=== PATIENT | female | born 1950 | race African-American/Black ===

== ENCOUNTER 2020-03-10 04:51 | Inpatient (IN) | payer OTHER ==
[~2020-03-10] VITALS: Ht 167.6 cm; Wt 85.3 kg
[2020-03-10] MEDS ORDERED: SODIUM CHLORIDE 0.9% 1,000 ML IV ONE ×2 (05:37→09:10)
[2020-03-10] MEDS ORDERED: ONDANSETRON HCL 4MG/2ML INJ IV STA (05:37)
[2020-03-10 06:13] LABS: HEMATOCRIT. 41.1 % (36.0-48.0); HEMOGLOBIN. 13.5 g/dL (12.0-16.0); MEAN CORPUSCULAR HEMOGLOBIN 26.4 pg (28.0-32.0); MEAN CORPUSCULAR VOLUME 80.1 fL (81.0-99.0); RED BLOOD CELL COUNT 5.12 mill/uL (4.2-5.4); RED CELL DISTRIBUTION WIDTH 16.7 % (11.6-14.6)
[2020-03-10 06:14] LABS: CHLORIDE 100 mEq/L (98-107)
[2020-03-10 07:43] LABS: PLATELET 361 x1000/uL (130-400)
[2020-03-10 07:47] LABS: PLATELET ESTIMATE NORMAL
[2020-03-10 08:34] LABS: BG BASE EXCESS -6.8 mmol/L (-2.0-2.0); BG CARBOXYHEMOGLOBIN 0.3 % (0.5-1.5); BG DEOXYHEMOGLOBIN 5.2 % (0.0-5.0); BG FRACTION INSPIRED OXYGEN 21; BG HCO3 ACT 17.3 mmol/L (22.0-26.0); BG OXYGEN SATURATION 94.8 % (92.0-98.5); BG OXYHEMOGLOBIN 94.5 % (94.0-97.0); BG PCO2 30.8 mmHg (35.0-45.0); BG PH 7.367 (7.350-7.450); BG PO2 77.9 mmHg (75.0-100.0); BG SAMPLE SITE RIGHT RADIAL; BG TOTAL HEMOGLOBIN 13.2 g/dL (12.0-18.0); BG VENT MODE ROOM AIR
[2020-03-10] MEDS ORDERED: PIPERACILLIN/TAZ 3.375G PREMIX 50 ML IV ONE (09:15)
[2020-03-10] MEDS ORDERED: VANCOMYCIN 1 G PREMIX 200 ML IV ONE (09:15)
[2020-03-10 09:56] LABS: D-DIMER 3.84 mg/L FEU (<0.50)
[2020-03-10] MEDS ORDERED: ONDANSETRON HCL 4MG/2ML INJ IV PRN (10:45)
[2020-03-10] MEDS ORDERED: LORAZEPAM 0.5MG TABLET PO PRN (10:45)
[2020-03-10] MEDS ORDERED: NA PHOS,M-B/NA PHOS,DI-BA ENEMA 118ML PR PRN (10:45)
[2020-03-10] MEDS ORDERED: DIPHENHYDRAMINE 50MG/ML VIAL IV PRN (10:45)
[2020-03-10] MEDS ORDERED: IPRATROPIUM/ALBUTEROL 0.5-3(2.5)MG/3ML NEB NEB PRN (10:45)
[2020-03-10] MEDS ORDERED: DOCUSATE SODIUM 100MG CAPSULE PO PRN (10:45)
[2020-03-10] MEDS ORDERED: DEXTROSE 50% WATER 50ML SYRINGE IV PRN (10:45)
[2020-03-10] MEDS ORDERED: MAGNESIUM/ALUMINUM HYDROXIDE/SIMETHICONE 30ML UDC PO PRN (10:45)
[2020-03-10] MEDS ORDERED: ACETAMINOPHEN 650MG SUPP PR PRN (10:45)
[2020-03-10] MEDS ORDERED: GUAIFENESIN 200MG/10ML SUGAR FREE UDC PO PRN (10:45)
[2020-03-10 11:40] VITALS: BP 193/78
[2020-03-10 12:00] VITALS: BP 169/78
[2020-03-10] MEDS ORDERED: ENOXAPARIN 40MG/0.4ML SYR SUBCUT SCH (12:00)
[2020-03-10] MEDS ORDERED: CYAN500T66 MT (12:44)
[2020-03-10] MEDS ORDERED: TRAM100C3 PO (12:44)
[2020-03-10] MEDS ORDERED: CLON0.1T PO (12:44)
[2020-03-10] MEDS ORDERED: CARV12.545 MT (12:44)
[2020-03-10] MEDS ORDERED: TRAM50TA3 MT (12:44)
[2020-03-10] MEDS: SODIUM CHLORIDE 0.9% 1,000 ML IV SCH ×2 (12:56→23:20)
[2020-03-10] MEDS: BLOOD SUGAR DIAGNOSTIC STRIP TEST SCH ×3 (13:07→21:47)
[2020-03-10] MEDS: CLONIDINE 0.1MG TABLET PO PRN ×2 (13:08→23:40)
[2020-03-10] MEDS: INSULIN LISPRO 100 UNITS/ML SUBCUT SCH ×3 (13:08→21:00)
[2020-03-10] MEDS: FAMOTIDINE 20MG/2ML VIAL IV SCH (13:10)
[2020-03-10] MEDS ORDERED: FAMO40TA7 MT (13:28)
[2020-03-10] MEDS ORDERED: METF-414 MT (13:28)
[2020-03-10] MEDS ORDERED: NIFE20CA PO (13:28)
[2020-03-10] MEDS ORDERED: ASPI-1497 PO (13:31)
[2020-03-10] MEDS ORDERED: ATOR-2 MT (13:31)
[2020-03-10] MEDS ORDERED: HYDR100T26 PO (13:31)
[2020-03-10] MEDS ORDERED: GABA-290 PO (13:31)
[2020-03-10] MEDS ORDERED: VANCOMYCIN 500 MG PREMIX 100 ML IV SCH (14:00)
[2020-03-10] MEDS: PIPERACILLIN/TAZOBACTAM 2.25 G in DEXTROSE 5% WATER 50 ML IV SCH ×2 (14:22→21:47)
[2020-03-10] MEDS ORDERED: PIPERACILLIN/TAZOBACTAM 2.25 G in DEXTROSE 5% WATER 50 ML IV SCH (15:00)
[2020-03-10] MEDS: AMLODIPINE 5MG TABLET PO SCH (17:39)
[2020-03-10 20:00] VITALS: BP 167/94
[2020-03-10] MEDS ORDERED: ENOXAPARIN 80MG/0.8ML SYR SUBCUT SCH (20:00)
[2020-03-10 20:46] LABS: CREATINE KINASE MB FRACTION 3.7 ng/mL (0.5-3.6)
[2020-03-10] MEDS: HYDRALAZINE 20MG/ML VIAL IV PRN (21:57)
[2020-03-10 23:54] LABS: CREATINE KINASE MB FRACTION 4.2 ng/mL (0.5-3.6)
[2020-03-11 00:51] VITALS: BP 183/94
[2020-03-11] MEDS: PIPERACILLIN/TAZOBACTAM 2.25 G in DEXTROSE 5% WATER 50 ML IV SCH ×4 (03:02→20:55)
[2020-03-11 04:00] VITALS: BP 174/94
[2020-03-11 06:11] LABS: CHLORIDE 104 mEq/L (98-107)
[2020-03-11 06:22] LABS: LDL CHOLESTEROL 28 mg/dL (5-100)
[2020-03-11 06:23] LABS: HDL CHOLESTEROL 42 mg/dL (40-59)
[2020-03-11 06:45] LABS: HEMATOCRIT. 39.5 % (36.0-48.0); MEAN CORPUSCULAR HEMOGLOBIN 26.3 pg (28.0-32.0); MEAN CORPUSCULAR VOLUME 80.1 fL (81.0-99.0); MEAN PLATELET VOLUME 8.9 fl (7.4-10.4); PLATELET 340 x1000/uL (130-400); RED BLOOD CELL COUNT 4.93 mill/uL (4.2-5.4); RED CELL DISTRIBUTION WIDTH 16.5 % (11.6-14.6)
[2020-03-11] MEDS: BLOOD SUGAR DIAGNOSTIC STRIP TEST SCH ×4 (06:56→21:01)
[2020-03-11] MEDS: INSULIN LISPRO 100 UNITS/ML SUBCUT SCH ×4 (07:01→21:00)
[2020-03-11 08:00] VITALS: BP 152/89
[2020-03-11] MEDS: FAMOTIDINE 20MG/2ML VIAL IV SCH (08:55)
[2020-03-11] MEDS: AMLODIPINE 5MG TABLET PO SCH (09:45)
[2020-03-11] MEDS ORDERED: POTASSIUM CHLORIDE 20MEQ TABLET SR PO NR (10:45)
[2020-03-11] MEDS: CLONIDINE 0.1MG TABLET PO PRN ×2 (10:57→23:50)
[2020-03-11 12:00] VITALS: BP 179/90
[2020-03-11] MEDS ORDERED: VANCOMYCIN 750 MG PREMIX 150 ML IV NR (12:00)
[2020-03-11] MEDS: HYDRALAZINE 20MG/ML VIAL IV PRN (12:13)
[2020-03-11] MEDS: SODIUM CHLORIDE 0.9% 1,000 ML IV SCH (13:42)
[2020-03-11] MEDS ORDERED: ENOXAPARIN 30MG/0.3ML SYR SUBCUT SCH (14:00)
[2020-03-11] MEDS: HYDRALAZINE HCL 50MG TABLET PO SCH ×2 (14:00→21:02)
[2020-03-11 16:00] VITALS: BP 157/82
[2020-03-11 16:22] LABS: BG BASE EXCESS -5.4 mmol/L (-2.0-2.0); BG CARBOXYHEMOGLOBIN 0.1 % (0.5-1.5); BG DEOXYHEMOGLOBIN 5.3 % (0.0-5.0); BG FRACTION INSPIRED OXYGEN 21; BG HCO3 ACT 18.1 mmol/L (22.0-26.0); BG METHEMOGLOBIN 0.3 % (0.0-1.5); BG OXYGEN SATURATION 94.7 % (92.0-98.5); BG OXYHEMOGLOBIN 94.3 % (94.0-97.0); BG PCO2 29.6 mmHg (35.0-45.0); BG PH 7.404 (7.350-7.450); BG PO2 77.6 mmHg (75.0-100.0); BG SAMPLE SITE RIGHT RADIAL; BG TOTAL HEMOGLOBIN 12.8 g/dL (12.0-18.0); BG VENT MODE ROOM AIR
[2020-03-11 17:57] LABS: CLARITY URINE CLOUDY (CLEAR); COLOR URINE YELLOW (YELLOW); KETONES URINE NEGATIVE (NEGATIVE); LEUKOCYTE ESTERASE URINE TRACE (NEGATIVE); NITRITE URINE NEGATIVE (NEGATIVE); OCCULT BLOOD URINE 2+ (NEGATIVE); PROTEIN URINE 1+ (NEGATIVE); SPECIFIC GRAVITY URINE 1.027 (1.005-1.030); UROBILINOGEN URINE 0.2 E.U./dL (0.2-1.0)
[2020-03-11 20:00] VITALS: BP 167/81
[2020-03-11] MEDS: ACETAMINOPHEN 325MG TABLET PO PRN (20:55)
[2020-03-12 01:02] VITALS: BP 169/82
[2020-03-12] MEDS: SODIUM CHLORIDE 0.9% 1,000 ML IV SCH ×2 (02:45→16:24)
[2020-03-12] MEDS: PIPERACILLIN/TAZOBACTAM 2.25 G in DEXTROSE 5% WATER 50 ML IV SCH ×4 (02:54→21:06)
[2020-03-12] MEDS: ACETAMINOPHEN 325MG TABLET PO PRN (03:15)
[2020-03-12 04:00] VITALS: BP 164/88
[2020-03-12] MEDS: HYDRALAZINE HCL 50MG TABLET PO SCH ×3 (05:57→21:06)
[2020-03-12] MEDS: BLOOD SUGAR DIAGNOSTIC STRIP TEST SCH ×4 (06:16→21:05)
[2020-03-12] MEDS: INSULIN LISPRO 100 UNITS/ML SUBCUT SCH ×4 (06:16→21:00)
[2020-03-12] MEDS: HYDROCODONE/ACETAMINOPHEN 5/325MG TABLET PO PRN ×2 (06:51→21:07)
[2020-03-12 07:49] LABS: HEMATOCRIT. 34.5 % (36.0-48.0); HEMOGLOBIN. 11.5 g/dL (12.0-16.0); MEAN CORPUSCULAR HEMOGLOBIN 26.6 pg (28.0-32.0); MEAN CORPUSCULAR VOLUME 80.2 fL (81.0-99.0); MEAN PLATELET VOLUME 8.9 fl (7.4-10.4); PLATELET 343 x1000/uL (130-400); RED CELL DISTRIBUTION WIDTH 16.3 % (11.6-14.6)
[2020-03-12 08:00] VITALS: BP 191/85
[2020-03-12 08:02] LABS: PHOSPHORUS 2.8 mg/dL (2.5-4.9)
[2020-03-12] MEDS: FAMOTIDINE 20MG/2ML VIAL IV SCH (09:50)
[2020-03-12] MEDS: AMLODIPINE 5MG TABLET PO SCH (09:50)
[2020-03-12] MEDS ORDERED: POTASSIUM CHLORIDE INJ 40 MEQ in DEXT 5% WATER 250 ML IV NR (12:00)
[2020-03-12 12:05] LABS: PLATELET ESTIMATE NORMAL
[2020-03-12] MEDS ORDERED: HYDRALAZINE 20MG/ML VIAL IV NR (12:45)
[2020-03-12] MEDS ORDERED: FLUCONAZOLE 200 MG/100ML BAG 100 MG in CONTAINER,EMPTY 0 BAG IV SCH (14:00)
[2020-03-12] MEDS: ASPIRIN 81MG TABLET PO SCH (14:46)
[2020-03-12] MEDS ORDERED: FLUCONAZOLE 100MG/50ML in BAG IV SCH (16:00)
[2020-03-12 18:28] LABS: PLATELET ESTIMATE NORMAL
[2020-03-12 20:00] VITALS: BP 208/67
[2020-03-12] MEDS: CLONIDINE 0.1MG TABLET PO PRN (21:06)
[2020-03-13] VITALS: BP 138/75
[2020-03-13] MEDS: PIPERACILLIN/TAZOBACTAM 2.25 G in DEXTROSE 5% WATER 50 ML IV SCH ×3 (02:47→15:39)
[2020-03-13 04:00] VITALS: BP 126/75
[2020-03-13] MEDS: SODIUM CHLORIDE 0.9% 1,000 ML IV SCH (05:25)
[2020-03-13] MEDS: HYDRALAZINE HCL 50MG TABLET PO SCH (05:54)
[2020-03-13] MEDS: BLOOD SUGAR DIAGNOSTIC STRIP TEST SCH ×2 (05:55→12:34)
[2020-03-13] MEDS: INSULIN LISPRO 100 UNITS/ML SUBCUT SCH ×2 (06:23→12:15)
[2020-03-13 07:41] LABS: HEMATOCRIT. 33.3 % (36.0-48.0); HEMOGLOBIN. 10.9 g/dL (12.0-16.0); MEAN CORPUSCULAR VOLUME 79.5 fL (81.0-99.0); MEAN PLATELET VOLUME 8.7 fl (7.4-10.4); PLATELET 355 x1000/uL (130-400); RED BLOOD CELL COUNT 4.19 mill/uL (4.2-5.4); RED CELL DISTRIBUTION WIDTH 16.3 % (11.6-14.6)
[2020-03-13] MEDS: HYDROCODONE/ACETAMINOPHEN 5/325MG TABLET PO PRN ×2 (08:10→14:00)
[2020-03-13] MEDS: AMLODIPINE 5MG TABLET PO SCH (08:10)
[2020-03-13] MEDS: ASPIRIN 81MG TABLET PO SCH (08:10)
[2020-03-13] MEDS: FAMOTIDINE 20MG/2ML VIAL IV SCH (08:10)
[2020-03-13] MEDS: CLONIDINE 0.1MG TABLET PO PRN (11:17)
[2020-03-13 12:00] VITALS: BP 184/78
[2020-03-13] MEDS ORDERED: HYDRALAZINE HCL 25MG TABLET PO SCH (14:00)
[2020-03-13] MEDS ORDERED: FAMO-135 PO (14:20)
[2020-03-13] MEDS ORDERED: LEVO500T2 PO (14:20)
[2020-03-13] MEDS ORDERED: FLUC100T42 MT (14:20)
[2020-03-13] MEDS ORDERED: HYDR100T26 MT (14:20)
[2020-03-13] MEDS: HYDRALAZINE 20MG/ML VIAL IV PRN (15:36)
[2020-03-13 16:11] VITALS: BP 155/70
[2020-03-13 23:17] LABS: PLATELET ESTIMATE NORMAL
== END 2020-03-13 15:40 | disposition home health service (06) | DRG 682 ==
LOC: ER 04:51 → 7WST 09:12 → EDBEDREQ 09:50 → ENRESERV 10:43 → 5WST 03-11 00:40 → UNDODISIN 03-13 15:40
PROVIDERS: ADMIT Internal Medicine; ATTEND Internal Medicine
DX: N17.9 Acute kidney failure, unspecified (principal); G93.41 Metabolic encephalopathy; N39.0 Urinary tract infection, site not specified; D68.59 Other primary thrombophilia; E87.1 Hypo-osmolality and hyponatremia; J98.11 Atelectasis; E87.2 Acidosis; E27.9 Disorder of adrenal gland, unspecified; R79.89 Other specified abnormal findings of blood chemistry; R33.9 Retention of urine, unspecified; K59.00 Constipation, unspecified; E83.52 Hypercalcemia; E11.65 Type 2 diabetes mellitus with hyperglycemia; E66.9 Obesity, unspecified; K31.89 Other diseases of stomach and duodenum; Z20.828 Contact with and (suspected) exposure to other viral communicable diseases; I12.9 Hypertensive chronic kidney disease with stage 1 through stage 4 chronic kidney disease, or unspecified chronic kidney disease; E11.22 Type 2 diabetes mellitus with diabetic chronic kidney disease; N18.9 Chronic kidney disease, unspecified; R31.9 Hematuria, unspecified; E11.21 Type 2 diabetes mellitus with diabetic nephropathy; Z79.84 Long term (current) use of oral hypoglycemic drugs; Z79.899 Other long term (current) drug therapy; Z68.30 Body mass index [BMI] 30.0-30.9, adult
CPT/HCPCS: 36415; 36600; 70551; 71045; 76700; 78582; 80048; 80053; 80061; 80202; 81003; 82140; 82375; 82550; 82553; 82728; 82805; 82962; 83036; 83605; 83615; 83735; 84100; 84439; 84443; 84484; 85025; 85379; 85384; 86140; 86850; 86900; 93005; 93306; 93970; 97116; 97162; 97530; 99285; J0360; J1450; J1650; J1815; J2405; J2543; J3370; J3480; J3490; J7030; J7060; U0003-CS